=== PATIENT | male | born 1960 | race African-American/Black ===

== ENCOUNTER 2024-04-20 19:59 | Emergency (ER) | payer OTHER ==
[2024-04-20] MEDS ORDERED: Morphine 4 MG/ML VIAL ONE ×2 (21:04→23:23)
[2024-04-20] MEDS ORDERED: Ondansetron PF 4 MG/2 ML Vial ONE ×2 (21:04→23:23)
[2024-04-20 21:09] LABS: ALT (SGPT) 15 U/L (8-55); AST (SGOT) 25 U/L (5-34); Albumin 3.6 g/dL (3.4-4.8); Alkaline Phosphatase 159 U/L (40-110); Anion Gap 19 mmol/L (10-20); BUN (Urea Nitrogen) 32 mg/dL (8.4-25.7); Bilirubin, Total 0.8 mg/dL (0.2-1.2); Calc. Creatinine Clearance 0 mL/min (70-130); Carbon Dioxide 26 mmol/L (23-31); Chloride 95 mmol/L (98-107); Estimated GFR 7; Globulin 4.1 g/dL (2.4-3.5); Glucose 234 mg/dL (80-115); Lipase 45 U/L (8-78); Magnesium 2.2 mg/dL (1.6-2.6); Potassium 4.7 mmol/L (3.5-5.1); Protein, Total 7.7 g/dL (5.8-8.1); Sodium 135 mmol/L (136-145)
[2024-04-20 21:25] LABS: #Basophils 0.04 10x3/uL (0.0-0.2); #Eosinphils 0.21 10x3/uL (0.0-0.5); #Neutrophils 6.94 10x3/uL (1.5-8.4); %Basophils 0.5 % (0.0-2.0); %Eosinophils 2.5 % (0.0-6.0); %Lymphocytes 8.1 % (18.0-47.0); %Monocytes 4.8 % (0.0-10.0); %Neutrophils 83.7 % (40.0-75.0); Hematocrit 30.7 % (38.8-50.0); Mean Corpuscular HGB CONC 32.6 g/dL (32.0-36.0); Mean Corpuscular Hemoglobin 28.7 pg (27.0-33.0); Mean Corpuscular Volume 88.2 fL (81.2-95.1); Mean Platelet Volume 11.4 fL (7.4-10.4); Platelet Count 183 10x3/uL (150-450); RBC Distribution Width 14.3 % (11.5-14.5); Red Blood Cell (RBC) Count 3.48 10x6/uL (4.32-5.72); White Blood Cell (WBC) Count 8.3 10x3/uL (3.5-10.5)
[2024-04-20 21:27] LABS: Platelet Adequacy Comment Appears Adequate
[2024-04-20 21:28] LABS: RBC Morph Comment Within Normal Limits
[2024-04-20 21:52] LABS: INR-International Normal Ratio 1.1; PTT 29.8 sec (22.0-33.0); Prothrombin Time 11.7 sec (9.5-12.1)
[2024-04-20] MEDS ORDERED: Cefepime 1 GM VIAL ONE (23:19)
[2024-04-20] MEDS ORDERED: Vancomycin 1.5 GRAM/300 ML BAG 1.5 GM in Premix 1 BAG IVPB SCH (23:45)
== END 2024-04-21 00:34 | disposition short-term general hospital (02) ==
LOC: CSHERS 19:59
DX: M46.20 Osteomyelitis of vertebra, site unspecified (principal); I12.0 Hypertensive chronic kidney disease with stage 5 chronic kidney disease or end stage renal disease; E11.22 Type 2 diabetes mellitus with diabetic chronic kidney disease; N18.6 End stage renal disease; Z99.2 Dependence on renal dialysis
CPT/HCPCS: 36415; 74176; 80053; 83690; 83735; 83880; 84484; 85025; 85610; 85730; 86140; 87040; 93005; 96365; 96375; 96376; J0692; J2272; J2405; J3370

== ENCOUNTER 2024-06-19 16:29 | Emergency (ER) | payer OTHER ==
[2024-06-19 17:52] LABS: #Basophils 0.02 10x3/uL (0.0-0.2); #Eosinophils 0.46 10x3/uL (0.0-0.5); #Monocytes 0.64 10x3/uL (0.0-1.1); #Neutrophils 6.51 10x3/uL (1.5-8.4); %Basophils 0.2 % (0.0-2.0); %Eosinophils 5.5 % (0.0-6.0); %Lymphocytes 7.8 % (18.0-47.0); %Monocytes 7.7 % (0.0-10.0); %Neutrophils 78.6 % (40.0-75.0); Hematocrit 34.1 % (38.8-50.0); Hemoglobin 10.6 g/dL (13.5-17.5); Mean Corpuscular HGB CONC 31.1 g/dL (32.0-36.0); Mean Corpuscular Hemoglobin 26.3 pg (27.0-33.0); Mean Corpuscular Volume 84.6 fL (81.2-95.1); Mean Platelet Volume 11.1 fL (7.4-10.4); Platelet Count 163 10x3/uL (150-450); RBC Distribution Width 15.9 % (11.5-14.5); Red Blood Cell (RBC) Count 4.03 10x6/uL (4.32-5.72); White Blood Cell (WBC) Count 8.3 10x3/uL (3.5-10.5)
[2024-06-19 17:53] LABS: ALT (SGPT) 10 U/L (8-55); AST (SGOT) 15 U/L (5-34); Albumin 3.6 g/dL (3.4-4.8); Alkaline Phosphatase 110 U/L (40-110); Anion Gap 18 mmol/L (10-20); BUN (Urea Nitrogen) 28 mg/dL (8.4-25.7); Bilirubin, Total 0.8 mg/dL (0.2-1.2); Calc. Creatinine Clearance 0 mL/min (70-130); Calcium 10.4 mg/dL (7.8-10.44); Carbon Dioxide 31 mmol/L (23-31); Chloride 93 mmol/L (98-107); Estimated GFR 6; Glucose 138 mg/dL (80-115); Lipase 15 U/L (8-78); Magnesium 2.5 mg/dL (1.6-2.6); Protein, Total 7.6 g/dL (5.8-8.1); Sodium 138 mmol/L (136-145)
[2024-06-19] MEDS ORDERED: Lactulose 20 GM (30 mL) UDCUP ONE (20:12)
[2024-06-19] MEDS ORDERED: Mineral Oil ENEMA ONE (22:53)
== END 2024-06-20 00:38 | disposition home or self-care (01) ==
LOC: CSHERS 16:29
DX: K56.41 Fecal impaction (principal); I11.0 Hypertensive heart disease with heart failure; I50.9 Heart failure, unspecified; E11.9 Type 2 diabetes mellitus without complications
CPT/HCPCS: 74176; 80053; 83690; 83735; 85025; 93005